=== PATIENT | female | born 1965 | race Two or more races ===

== ENCOUNTER 2020-03-07 07:52 | Inpatient (IN) | payer MEDICAID, OTHER ==
[~2020-03-07] VITALS: Ht 167.6 cm; Wt 64.3 kg
[2020-03-07 08:46] LABS: Basophils # (auto) 0 10 ^3/uL (0-0.2); Basophils % (auto) 0.1 % (0.0-2.0); Eosinophils # (auto) 0.1 10 ^3/uL (0-0.8); Eosinophils % (auto) 1.1 % (0.0-7.0); Hematocrit 40.8 % (36.0-46.0); Hemoglobin 13.5 g/dL (12.2-16.2); Lymphocytes % (auto) 11.4 % (10.0-50.0); Mean Corpuscular Hemoglobin 30.6 pg (28.0-32.0); Mean Corpuscular Volume 92.9 fL (80.0-100.0); Monocytes # (auto) 0.4 10 ^3/uL (0-1.3); Monocytes % (auto) 4.8 % (0.0-12.0); Neutrophils # (auto) 7.1 10 ^3/uL (1.6-8.6); Neutrophils % (auto) 82.6 % (37.0-80.0); Platelet Count (auto) 228 10^3/uL (140-450); Red Cell Distribution Width 13.5 % (11.8-14.3); White Blood Cell 8.6 10^3/uL (4.4-10.8)
[2020-03-07 09:04] LABS: Albumin 3.4 g/dL (3.4-5.0); Calcium 8.7 mg/dL (8.5-10.1); Potassium 3.6 mmol/L (3.5-5.1)
[2020-03-07 09:06] LABS: BUN/Creatinine Ratio 38.3
[2020-03-07 09:09] LABS: Total Protein 7.4 g/dL (6.4-8.2)
[2020-03-07] MEDS ORDERED: SODIUM CHLORIDE 0.9% 1,000 ML IV ONE (10:30)
[2020-03-07] MEDS ORDERED: SODIUM CHLORIDE 0.9% 500 ML IV ONE (10:30)
[2020-03-07] MEDS ORDERED: ONDANSETRON HCL 4 MG/2 ML VIAL IV ONE (10:30)
[2020-03-07] MEDS ORDERED: MORPHINE SULF INJ 2 MG/ML SYRINGE 1ML IV ONE (10:30)
[2020-03-07 11:16] LABS: INR 0.97 (0.9-1.15); Partial Thromboplastin Time 21.7 sec (23.0-31.2)
[2020-03-07 12:06] LABS: Urine Bacteria MANY /hpf (None Seen); Urine Blood TRACE /uL (Negative); Urine Specific Gravity 1.018 (1.001-1.035); Urine WBC 4 /hpf (0 - 5)
[2020-03-07] MEDS ORDERED: NITROGLYCERIN 0.4 MG SL TAB SL PRN ×2 (16:15→22:15)
[2020-03-07] MEDS ORDERED: HYDROcodone-ACET 5/325MG TAB PO PRN ×2 (16:15→22:15)
[2020-03-07] MEDS ORDERED: ACETAMINOPHEN 325 MG TAB PO PRN ×2 (16:15→22:15)
[2020-03-07] MEDS ORDERED: HYDROcodone-ACET 10/325MG TAB PO PRN ×2 (16:15→22:15)
[2020-03-07] MEDS ORDERED: MORPHINE SULF INJ 2 MG/ML SYRINGE 1ML IV PRN ×4 (16:15→22:15)
[2020-03-07] MEDS ORDERED: OLAN1TAB26 PO (16:24)
[2020-03-07] MEDS ORDERED: PALI234I IM (16:24)
[2020-03-07] MEDS ORDERED: HYDRX10T PO (16:24)
[2020-03-07] MEDS ORDERED: cefTRIAXone 1GM/50ML D5W 50 ML IV ONE ×2 (19:30→21:45)
--- NOTE | 2020-03-07 19:40 | NUR ---
ADMIT TO TELE FROM ER Assumed care of patient. Patient was transferred via stretcher from the ER. Currently on RA with no S/S of distress or SOB at this time. Patient denies any pain at this time. Connected to Tele monitor #29 currently running SR in the 60's. IV to the right forearm 20 gauge saline locked at this time. Zimmerman is in place draining freely with no kinks or obstruction noted, hanging below the bed draining by gravity. Patient is on bed rest, bed alarm on. POC discussed with patient all questions answered. Bed locked, lowest position, side rails up x2, call light within reach. Will continue to monitor PRN.
[2020-03-07 20:20] VITALS: BP 135/87
[2020-03-07] MEDS: hydrOXYzine HCL 10 MG TAB PO SCH (21:50)
[2020-03-07] MEDS ORDERED: hydrOXYzine HCL 10 MG TAB PO SCH (22:00)
--- NOTE | 2020-03-08 | NUR ---
PATIENT NPO PER ORDER
[2020-03-08 05:00] VITALS: BP 118/59
--- NOTE | 2020-03-08 07:02 | NUR ---
CARE ENDORSED TO SHEA CUETO
--- NOTE | 2020-03-08 07:03 | NUR ---
OPENING SHIFT NOTES Assumed care of patient from network technology instructor RN. She is alert and oriented x4, no signs of distress noted, patient states her right hip pain is 8/10 with movement and 0/10 when not moving, She was offered pain medication and refused. She was updated on the plan of care and verbalized understanding. Zimmerman noted draining clear yellow urine to gravity, no kinks or loops noted in the tubing. Bed is locked, in the lowest position, side rails up x2 and call light is in reach. Patient was encouraged to call for assistance as needed.
--- NOTE | 2020-03-08 07:40 | NUR ---
CALL FROM KING VELASQUEZ states he will do surgery tomorrow and come see the patient later today. New order received for regular diet today and NPO after midnight tonight. Orders read back and verified.
[2020-03-08 09:00] VITALS: BP 134/70
[2020-03-08] MEDS: hydrOXYzine HCL 10 MG TAB PO SCH ×3 (09:43→21:41)
--- NOTE | 2020-03-08 09:48 | NUR ---
KING ALLEN AT BEDSIDE patient was updated on the status of her hip and verbalized understanding. Procedure was explained to the patient and she stated she wanted to use a wheelchair and that she needs to talk to her about the surgery. CAR SANDER was made aware of the current social services coordinator consult for APS. Will keep her updated on the patient status for procedure tomorrow.
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
--- NOTE | 2020-03-08 12:23 | NUR ---
INHOUSE COVID SWAB FOR PROCEDURE WALKED TO LAB. PER PROTOCOL FOR OR.
--- NOTE | 2020-03-08 12:40 | NUR ---
LIGIA AT BEDSIDE for cardiac clearance for procedure. New order for EKG.
--- NOTE | 2020-03-08 12:51 | NUR ---
EKG COMPLETED and put in patient chart.
[2020-03-08 13:00] VITALS: BP 106/62
--- NOTE | 2020-03-08 13:53 | NUR ---
Oscar ARAIZA CALLED REGARDING PATIENT URINE CULTURE, NEW ORDER FOR ROCEPHIN 1GM IV DAILY.
[2020-03-08] MEDS: cefTRIAXone 1GM/50ML D5W 50 ML IV SCH (14:20)
--- NOTE | 2020-03-08 14:20 | NUR ---
LIGIA CALLED regarding ecg results, made aware of SR 77 with pvc. Per MD patient is still clear for surgery per his note.
[2020-03-08 17:00] VITALS: BP 103/72
--- NOTE | 2020-03-08 19:20 | NUR ---
OPENING SHIFT NOTE Assumed care of patient from Geovanna CUETO. Patient is alert and oriented x4, currently on RA with no S/S of distress or SOB noted at this time. Patient denies any pain at this time. POC was discussed with patient and verbalized understanding. Zimmerman noted draining clear yellow urine to gravity, no kinks or loops noted in the tubing. Bed is locked, in the lowest position, side rails up x2 and call light is in reach. Patient was encouraged to call for assistance as needed. Will continue to monitor PRN.
--- NOTE | 2020-03-08 20:00 | NUR ---
DR. Oscar ARAIZA BEDSIDE New orders obtained. Will carry out.
[2020-03-08] MEDS: OLANZapine 5 MG TAB PO SCH (20:17)
--- NOTE | 2020-03-08 20:44 | NUR ---
TELE PSYCH ORDERED AND COMPLETED
--- NOTE | 2020-03-08 20:45 | NUR ---
MED INFO NEEDED Tele Psych requested to find out the last time the patient received Invega injection. Patient is a poor historian and does not recall when the last time was. Patient receives this medication once monthly. Will need to call patients own Pharmacy to obtain.
[2020-03-08 22:00] VITALS: BP 118/51
--- NOTE | 2020-03-08 22:18 | NUR ---
IV REMOVAL Iv site was reddened and warm to touch. IV DC'd with clean sterile technique, catheter fully intact. Pressure dressing applied to site. Patient tolerated well. Will obtain a new IV site.
--- NOTE | 2020-03-08 23:50 | NUR ---
IV INSERTION IV access obtained, via clean sterile technique by inserting 20 gauge catheter to the left hand after 1 attempt. IV secured properly. No trauma to site. Patient tolerated well.
[2020-03-09 06:00] VITALS: BP 126/67
[2020-03-09 06:16] LABS: Basophils # (auto) 0 10 ^3/uL (0-0.2); Basophils % (auto) 0.5 % (0.0-2.0); Eosinophils # (auto) 0.1 10 ^3/uL (0-0.8); Lymphocytes # (auto) 1.4 10 ^3/uL (0.4-5.4); Lymphocytes % (auto) 21.8 % (10.0-50.0); Mean Corpuscular Hemoglobin 31.8 pg (28.0-32.0); Mean Corpuscular Hgb Conc. 35.3 g/dL (32.0-36.0); Mean Corpuscular Volume 90.2 fL (80.0-100.0); Monocytes # (auto) 0.5 10 ^3/uL (0-1.3); Monocytes % (auto) 7.4 % (0.0-12.0); Neutrophils # (auto) 4.3 10 ^3/uL (1.6-8.6); Neutrophils % (auto) 68.3 % (37.0-80.0); Platelet Count (auto) 245 10^3/uL (140-450); Red Cell Distribution Width 13.3 % (11.8-14.3); White Blood Cell 6.3 10^3/uL (4.4-10.8)
[2020-03-09 06:42] LABS: Potassium 3.7 mmol/L (3.5-5.1)
--- NOTE | 2020-03-09 07:01 | NUR ---
CARE ENDORSED TO SHEA CUETO
--- NOTE | 2020-03-09 07:01 | NUR ---
OPENING SHIFT NOTE Assumed care of patient from night nurse RN. Patient is alert and oriented x4, no signs of distress noted, states pain is 7/10 with movement, refused pain medication. Patient was updated on the plan of care and states she is "nervous it wont be the same" and that she "does not want to keep having surgeries after". Will call the MD or [facility] to come and speak to the patient about the questions she has about the procedure and plan of care after the procedure. Bed is locked, in the lowest position, side rails are up x2 and call light is in reach. Patient was encouraged to call for assistance as needed.
[2020-03-09 07:05] LABS: BUN/Creatinine Ratio 27.3; Calcium 8.5 mg/dL (8.5-10.1)
--- NOTE | 2020-03-09 07:25 | NUR ---
ORTHO WIND DEVELOPMENT DIRECTOR AT BEDSIDE to answer patient questions and explain procedure.
[2020-03-09] MEDS: cefTRIAXone 1GM/50ML D5W 50 ML IV SCH (08:29)
--- NOTE | 2020-03-09 08:48 | NUR ---
CONSENTS FOR PROCEDURE SIGNED.
[2020-03-09 09:00] VITALS: BP 121/56
--- NOTE | 2020-03-09 09:02 | NUR ---
CALLED TELE PSYCH FOR RESULTS spoke with surgical sales representative Brigida, will fax report to Art blood.
--- NOTE | 2020-03-09 09:40 | NUR ---
TELE PSYCH PLACED IN PATIENT CHART
[2020-03-09] MEDS: OLANZapine 5 MG TAB PO SCH (09:41)
[2020-03-09] MEDS: hydrOXYzine HCL 10 MG TAB PO SCH ×2 (09:41→21:52)
--- NOTE | 2020-03-09 09:56 | NUR ---
[facility] . Per medical tech, patient had Invega 02/20/2020.
[2020-03-09 13:00] VITALS: BP 124/71
[2020-03-09] MEDS ORDERED: TRANEXAMIC ACID 20 ML ONE (13:08)
[2020-03-09] MEDS ORDERED: VANCOMYCIN HCL 1000 MG VL ONE (13:09)
--- NOTE | 2020-03-09 14:56 | NUR ---
PATIENT TAKEN TO PRE OP accompanied by this RN and Iman RN. No signs of distress. Care endorsed to pre-op RN.
--- NOTE | 2020-03-09 15:19 | NUR ---
CALLED REQUESTING INFORMATION patient does not have a password set up, he was told that he cannot get any information without a password that has been set up by the patient and he verbalized understanding.
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
[2020-03-09] MEDS ORDERED: ceFAZolin 1GM/50ML 100 ML IV ONE (15:59)
[2020-03-09] MEDS ORDERED: KETOROLAC TROMETH 30 MG/ML 1ML VIAL ONE (15:59)
[2020-03-09] MEDS ORDERED: BUPIVACAINE 0.25% INJ 50ML VIAL ONE (16:00)
[2020-03-09] MEDS ORDERED: MORPHINE SULF(PF) 0.5MG/ML 10ML VIAL ONE (16:01)
[2020-03-09] MEDS ORDERED: TETRACAINE 1% INJ 2 ML VIAL IJ ONE ×2 (16:51→16:57)
[2020-03-09] MEDS ORDERED: fentaNYL CITRATE 100 MCG/2 ML VL ONE (17:14)
[2020-03-09] MEDS ORDERED: MIDAZOLAM HCL 1MG/1ML-2 ML VIAL ONE (17:15)
[2020-03-09] MEDS ORDERED: PROPOFOL 10 MG/ML 20 ML IV ONE (17:42)
[2020-03-09] MEDS ORDERED: DexAMETHasone SOD PHOS 10MG/1ML VIAL INJ ONE (17:42)
[2020-03-09] MEDS ORDERED: HYDROmorphone HCL 2 MG/ML VL IV PRN (18:00)
[2020-03-09] MEDS ORDERED: ONDANSETRON HCL 4 MG/2 ML VIAL IV PRN (18:00)
[2020-03-09] MEDS ORDERED: MORPHINE SULFATE 4 MG/ML SYR/VIAL IV PRN (18:00)
[2020-03-09] MEDS ORDERED: ePHEDrine SULFATE 50 MG/ML AMP IV PRN (18:00)
[2020-03-09] MEDS ORDERED: LABETALOL HCL 5 MG/ML 4ML SYRINGE IV PRN (18:00)
[2020-03-09] MEDS ORDERED: KETOROLAC TROMETH 30 MG/ML 1ML VIAL IV ONE (18:00)
[2020-03-09] MEDS: LACTATED RINGER'S 1,000 ML IV SCH (18:45)
[2020-03-09] MEDS ORDERED: ceFAZolin 1GM/50ML 50 ML IV SCH (18:45)
--- NOTE | 2020-03-09 19:50 | NUR ---
PATIENT BACK ON UNIT Received patient from recovery room Bibiana CUETO VS: HR:53 RR:13 O2:98% BP:125/56 TEMP:99.4 Patient is drowsy, appropriate and responds to verbal commands. Currently on 2L NC respirations are even and unlabored no S/S of distress or SOB noted. Pedal pulses are present bilaterally. Surgical site checked with gem setter, dressing is clean dry and intact. SCD machine is applied and attached to the patient. LR running @100 mls/hr. Zimmerman is draining clear yellow urine. Tele monitor # 29 is attached and patient is running Sinus Abraham at 54bpm. Bed is locked and in lowest position, side rails up x2, bed alarm is on. Call light is within reach. POC discussed with patient and patient is encouraged to call for assistance. Will continue to monitor PRN.
[2020-03-09] MEDS: SODIUM CHLOR 0.9% PF (SALINE LOCK) 10ML VIAL/SYR IV SCH (21:46)
[2020-03-09] MEDS: ceFAZolin 1GM/50ML 50 ML IV SCH (21:47)
[2020-03-09 22:00] VITALS: BP 122/92
[2020-03-10] VITALS (7 sets, daily range): BP systolic 116–131; BP diastolic 49–88
[2020-03-10] MEDS: ceFAZolin 1GM/50ML 50 ML IV SCH ×2 (04:00→10:38)
[2020-03-10] MEDS: LACTATED RINGER'S 1,000 ML IV SCH ×2 (04:45→14:45)
[2020-03-10] MEDS: SODIUM CHLOR 0.9% PF (SALINE LOCK) 10ML VIAL/SYR IV SCH ×2 (06:00→14:09)
[2020-03-10 06:14] LABS: Basophils # (auto) 0 10 ^3/uL (0-0.2); Eosinophils # (auto) 0 10 ^3/uL (0-0.8); Hematocrit 36.9 % (36.0-46.0); Hemoglobin 12.8 g/dL (12.2-16.2); Lymphocytes # (auto) 0.7 10 ^3/uL (0.4-5.4); Lymphocytes % (auto) 7.9 % (10.0-50.0); Mean Corpuscular Hemoglobin 31.2 pg (28.0-32.0); Mean Corpuscular Hgb Conc. 34.6 g/dL (32.0-36.0); Mean Corpuscular Volume 90.2 fL (80.0-100.0); Monocytes # (auto) 0.4 10 ^3/uL (0-1.3); Monocytes % (auto) 4.7 % (0.0-12.0); Neutrophils # (auto) 7.8 10 ^3/uL (1.6-8.6); Neutrophils % (auto) 87.4 % (37.0-80.0); Platelet Count (auto) 238 10^3/uL (140-450); Red Blood Cells 4.09 10^6/uL (4.0-5.20); Red Cell Distribution Width 13.3 % (11.8-14.3); White Blood Cell 8.9 10^3/uL (4.4-10.8)
[2020-03-10 06:33] LABS: Albumin 2.7 g/dL (3.4-5.0); Calcium 8.5 mg/dL (8.5-10.1)
[2020-03-10 06:38] LABS: BUN/Creatinine Ratio 29.8; Bilirubin, Total 0.5 mg/dL (0.2-1.0); Potassium 4.1 mmol/L (3.5-5.1); Total Protein 6.5 g/dL (6.4-8.2)
--- NOTE | 2020-03-10 07:28 | NUR ---
CARE ENDORSED TO JALEESA CUETO
[2020-03-10] MEDS ORDERED: ENOXAPARIN SOD 40 MG/0.4 ML SYRINGE SC SCH (10:00)
[2020-03-10] MEDS: hydrOXYzine HCL 10 MG TAB PO SCH (10:38)
[2020-03-10] MEDS: OLANZapine 5 MG TAB PO SCH (10:39)
--- NOTE | 2020-03-10 11:41 | NUR ---
PATIENT STATES SHE FEELS SAFE TO RETURN HOME MD AT BEDSIDE PATIENT ALERT AND ORIENTED X4. PATIENT STATED SHE FEELS SAFE TO GO HOME AND WISHES TO RETURN HOME. MD DISCUSSED POC PATIENT VERBALIZED UNDERSTANDING PATIENT IS AWARE OF HER OPTIONS. WILL CONTINUE TO MONITOR
[2020-03-10] MEDS ORDERED: LEVO500T21 PO (11:57)
[2020-03-10] MEDS ORDERED: levoFLOXacin 500 MG TAB PO ONE (12:00)
[2020-03-10] MEDS ORDERED: ACE325T PO (12:21)
[2020-03-10] MEDS ORDERED: HYDR-4833 PO (12:21)
--- NOTE | 2020-03-10 13:04 | NUR ---
IV INSERTION IV INSERTION TO RIGHT FOREARM 22 G AFTER 2 ATTEMPTS. PATIENT TOLERATED WELL WILL CONTINUE TO MONITOR
--- NOTE | 2020-03-10 14:29 | NUR ---
I faxed home health order to [facility]-requesting authorization for [facility].
--- NOTE | 2020-03-10 15:01 | NUR ---
I faxed home health order to [facility]-requesting authorization for [facility]. 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
--- NOTE | 2020-03-10 15:53 | NUR ---
re-assessment Patient has changed her mind and now wants to return home on discharge. SNF order was cancelled and MD put in for consult for [facility] for safety eval and PT eval. order has been sent to [facility]. Per Faustina at [facility] she has accepted patient for service. [facility] nurse outreach case manager is getting auth from [place] nurse outreach case manager. order for fww was sent to . Jose Austin at she is working on order and fww will be delivered to bedside by 7pm. [facility] also [facility] [id number] Addendum: 03/10/20 at 1604 by Madhuri TRACY Amended: Links added.
[2020-03-10] MEDS ORDERED: cefTRIAXone 1GM/50ML D5W 50 ML IV SCH (16:00)
--- NOTE | 2020-03-10 16:29 | NUR ---
I spoke with Gloria at [facility]-authorization number for [facility] is [id number].
--- NOTE | 2020-03-10 17:03 | NUR ---
SS AT BEDSIDE PATIENT ALERT AND ORIENTED X4 PATIENT TOLD CHAUNCEY SS THAT SHE WILL RECEIVE RIDE FROM AND TRANSPORTATION DOES NOT NEED TO BE PROVIDED. PATIENT WAS INFORMED OF OPTIONS PATIENT VERBALIZED UNDERSTANDING.
--- NOTE | 2020-03-10 18:55 | NUR ---
AWAITING FRONT WHEEL WALKER TO BE DELIVERED AT BEDSIDE DISCHARGE NOTE PATIENT ALERT AND ORIENTED X4 ALL DISCHARGE INSTRUCTIONS GIVEN ALL QUESTIONS AND CONCERNS ADDRESSED AND ANSWERED PATIENT VERBALIZED UNDERSTANDING. IV REMOVED CATHETER INTACT PATIENT TOLERATED WELL. BUCK CATHETER REMOVED PATIENT TOLERATED WELL. TELE MONITOR REMOVED CLEANED AND SENT TO ICU SAMPLE CASE PORTER NOTIFIED. PATIENT INFORMED OF HOME HEALTH WITH JOANNE LIGHT PATIENT ALSO INFORMED BY THIS RN AND CHAUNCEY SS THAT FWW TO BE DELIVERED PRIOR TO DISCHARGE. PATIENT VERBALIZED UNDERSTANDING.
--- NOTE | 2020-03-10 21:15 | NUR ---
Discharge Patient discharged via wheelchair with all personal belongings and wheelchair, accompanied by staff. No distress noted at time of departure.
[2020-03-11] MEDS ORDERED: levoFLOXacin 500 MG TAB PO SCH (10:00)
== END 2020-03-10 21:15 | disposition home health service (06) | DRG 301 ==
LOC: EDBD 07:52 → ER 07:52 → TELE-CENTR 07:53 → ER 19:40
PROVIDERS: ADMIT Internal Medicine; ATTEND Internal Medicine
PROC: 0SRR0JZ Replacement of Right Hip Joint, Femoral Surface with Synthetic Substitute, Open Approach (ICD-10-PCS; principal; 2020-03-10)
DX: S72.011A Unspecified intracapsular fracture of right femur, initial encounter for closed fracture (principal); N39.0 Urinary tract infection, site not specified; F32.9 Major depressive disorder, single episode, unspecified; B96.20 Unspecified Escherichia coli [E. coli] as the cause of diseases classified elsewhere; F20.0 Paranoid schizophrenia; I10 Essential (primary) hypertension; W18.30XA Fall on same level, unspecified, initial encounter; Y92.009 Unspecified place in unspecified non-institutional (private) residence as the place of occurrence of the external cause; Z20.828 Contact with and (suspected) exposure to other viral communicable diseases; Z96.641 Presence of right artificial hip joint; Y93.89 Activity, other specified; Y99.0 Civilian activity done for income or pay
CPT/HCPCS: 36415; 71046; 72170; 73502; 80048; 80053; 81001; 83735; 85025; 85610; 85730; 86850; 86900; 86901; 87086; 87088; 87186; 93005; 96361; 96374; 96375; A4565; G0378; J0690; J0696; J1100; J1885; J2250; J2405; J2704; J3490